=== PATIENT | female | born 2005 | race Caucasian/White ===

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

== ENCOUNTER 2023-08-20 11:53 | Emergency (ER) | payer MEDICAID, SELFPAY ==
--- NOTE | ~2023-08-20 | XR_ITS ---
EXAMINATION: XR chest 2V DATE: 08/20/2023 12:30 INDICATION: Chest pain TECHNIQUE: PA and lateral views of the chest were obtained. COMPARISON: None FINDINGS: The lungs are clear with no focal airspace opacities, pulmonary edema, pleural effusion or pneumothor ax. The cardiomediastinal silhouette is normal. Mild thoracic levocurvature. IMPRESSION: 1. No acute cardiopulmonary disease. Reviewed, dictated and finalized at location A. TERING FILTERING SUPERVISOR
--- NOTE | 2023-08-20 11:56 | ECG_ITS ---
Measurements Intervals [place] Rate: 115 P: 51 TN: 115 QRS: 50 QRSD: 85 T: 4 QT: 312 QTc: 432 Interpretive Statements SINUS TACHYCARDIA WITH SHORT TN INTERVAL NORMAL ELECTROCARDIOGRAM NO PREVIOUS ECG AVAILABLE FOR COMPARISON Electronically Signed On 08-20-2023 14:14:30 PAPER DELIVERER by Mike Hartman M.D.
[2023-08-20 12:06] VITALS: BP 140/86; PULSE 129; RESP 16; TEMP 36.7; O2SAT 99
[2023-08-20 12:30] LABS: Basophils Percent Auto 0.4 % (0.2-1.2); Eosinophils Absolute Auto 0.3 K/mm3 (0-0.3); Eosinophils Percent Auto 3.7 % (0-4.4); Hematocrit 42.4 % (37.0-47.0); Hemoglobin 13.8 g/dL (12.0-15.0); Immature Granulocyte Absolute 0.03 K/mm3 (0.00-0.031); Immature Granulocyte Percent A 0.4 % (0-0.5); Lymphocytes Percent Auto 31.6 % (18.3-44.2); Mean Corpuscular HGB Conc 32.5 g/dl (32-36); Mean Corpuscular Hemoglobin 29.8 pg (26-34); Mean Corpuscular Volume 91.6 fl (80-100); Monocytes Absolute Auto 0.6 K/mm3 (0.1-0.6); Monocytes Percent Auto 7.6 % (2.6-8.5); Neutrophils Absolute Auto 4.3 K/mm3 (1.3-6.7); Neutrophils Percent Auto 56.3 % (45.5-73.1); Platelet Count Result 317 k/mm3 (150-375); Red Blood Count 4.63 M/mm3 (4.2-5.4); Red Cell Distribution Width 12.3 % (11.5-14.5); White Blood Count 7.6 K/mm3 (4.5-10.0)
[2023-08-20 12:40] LABS: Alanine Aminotransferase 53 U/L (6-35); Albumin Level 4.9 g/dL (3.7-5.6); Alkaline Phosphatase 86 U/L (45-116); Anion Gap 11 mmol/L (8-16); Aspartate Amino Transferase 35 U/L (14-36); Bilirubin,Total 0.9 mg/dL (0.2-1.3); Blood Urea Nitrogen 6 mg/dL (8-21); Calcium 10.1 mg/dL (8.9-10.7); Carbon Dioxide 25 mmol/L (22-30); Chloride 104 mmol/L (98-107); Estimated Glomerular Filt Rate > 60; Glucose 109 mg/dL (65-110); Lipase 41 U/L (23-300); Potassium 3.9 mmol/L (3.4-5.0); Sodium 140 mmol/L (134-143)
[2023-08-20 12:41] LABS: Prothrombin Time 13.5 Seconds (11.1-14.7)
[2023-08-20 12:42] LABS: Partial Thromboplastin Time 27.5 SECONDS (22.3-36.8)
[2023-08-20 12:52] LABS: Troponin I < 0.012 ng/mL (0.000-0.034)
--- NOTE | 2023-08-20 15:20 | ED.GENADULT ---
HPI - General Adult General Chief complaint: Chest Pain Stated complaint: cp, dizzy Time Seen by Provider: 08/20/23 14:45 History of Present Illness HPI narrative: 17 years old white female came to the emergency room with her girlfriend complaining of intermittent lightheadedness, migraine headache, 4 days/weeks, retrosternal chest pain 8 hours ago.. Currently patient main complaint is lightheadedness and headache. History of anxiety, depression, insomnia and migraine headache. Patient denies any shortness of breath or back pain or abdominal pain. Related Data Home Medications Medication Instructions Recorded Confirmed Seroquel 04/23/21 hydroxyzine HCl 04/23/21 Allergies Allergy/AdvReac Type Severity Reaction Status Date / Time No Known Allergies Allergy Verified 08/20/23 14:39 Review of Systems Review of Systems: All systems reviewed & are unremarkable except as noted in HPI and below PMFSH Past Medical History Medical History Anxiety Depression Social History Social History Smoking status: Never smoker Alcohol intake: current Substance use type: marijuana Last use: 48 hours ago Exam Narrative: General appearance: Well-developed, well-nourished Skin: Normal color Head: Normocephalic, nontraumatic Eyes: Clear conjunctiva ENT: Oropharynx normal, ears normal, nose normal Neck: Supple, nontender Chest and respiratory: Airway patent, no respiratory distress, no accessory muscle use Heart: Regular rate/rhythm Abdomen: Soft, nontender, no organomegaly, quiet bowel sounds Vascular: Normal peripheral pulses, normal capillary refill. Musculoskeletal: Normal range of motion, nontender back Neurologic: Alert and oriented ?3, ELECTROTYPE FINISHER is normal as tested, no gross motor deficit Course Vital Signs Vital signs: Vital Signs Temperature 36.7 C 08/20/23 12:06 Pulse Rate 129 H 08/20/23 12:06 Respiratory Rate 16 08/20/23 12:06 Blood Pressure 140/86 08/20/23 12:06 Pulse Oximetry 99 08/20/23 12:06 Oxygen Delivery Room Air 08/20/23 12:06 Temperature 36.7 C 08/20/23 12:06 Pulse Rate 129 H 08/20/23 12:06 Respiratory Rate 16 08/20/23 12:06 Blood Pressure 140/86 08/20/23 12:06 Pulse Oximetry 99 08/20/23 12:06 Oxygen Delivery Room Air 08/20/23 12:06 Medical Decision Making MDM Narrative Medical decision making narrative: Patient presents with multiple symptoms including headache, chest pain, lightheadedness, insomnia, insomnia Differential diagnosis anxiety, depression, migraine headache Blood workup showed no acute abnormality, EKG and chest x-ray showed no acute abnormality. In the ED patient received 60 mg of Toradol IM, 1 mg of Ativan p.o. with remarkable improvement. the pt was discharged to home.the pt,s condition upon discharge was fair,education was provided to the pt in reference to the final impression,discharge study results,treatment,prognosis and need for follow up . Differential Diagnosis Differential Diagnosis: As above Vital Signs Vital Signs: Vital Signs Temperature 36.7 C 08/20/23 12:06 Pulse Rate 129 H 08/20/23 12:06 Respiratory Rate 16 08/20/23 12:06 Blood Pressure 140/86 08/20/23 12:06 Pulse Oximetry 99 08/20/23 12:06 Oxygen Delivery Room Air 08/20/23 12:06 Temperature 36.7 C 08/20/23 12:06 Pulse Rate 129 H 08/20/23 12:06 Respiratory Rate 16 08/20/23 12:06 Blood Pressure 140/86 08/20/23 12:06 Pulse Oximetry 99 08/20/23 12:06 Oxygen Delivery Room Air 08/20/23 12:06 Lab Data 08/20/23 12:22
[2023-08-20] MEDS: LORazepam (*CRX) 0.5 MG TABLET 1 MG PO (15:31)
[2023-08-20] MEDS: KETOROLAC (*BKC) 60 MG/2 ML VIAL IM (15:34)
[2023-08-20 17:00] VITALS: BP 135/90; PULSE 105; RESP 18; O2SAT 100
== END 2023-08-20 17:02 | disposition home or self-care (01) ==
PROVIDERS: Emergency Provider Emergency Medicine
DX: G43.909 Migraine, unspecified, not intractable, without status migrainosus (principal); R07.89 Other chest pain; F41.9 Anxiety disorder, unspecified; F32.A Depression, unspecified; R00.0 Tachycardia, unspecified
CPT/HCPCS: 36415; 71046; 80053; 83690; 84484; 85025; 85610; 85730; 93005; 96372; 99284; A9270; J1885

== ENCOUNTER 2023-09-12 19:30 | Emergency (ER) | payer MEDICAID, SELFPAY ==
--- NOTE | ~2023-09-12 | CT_ITS ---
EXAMINATION: CT brain wo con DATE: 09/12/2023 22:22 INDICATION: near syncope, lightheaded . TECHNIQUE: Computed tomography (CT) of the head was performed without intravenous contrast. The mA wa s adjusted according to patient size. Iterative reconstruction technique was employed. The dose-lengt h product was 605.33 mGy-cm. COMPARISON: None. FINDINGS: No acute intracranial hemorrhage or extra-axial fluid collection. No hydrocephalus, mass, or herniation. No acute ischemic infarct. Unremarkable dural venous sinus attenuation. No acute osseous abnormality. The aerated spaces are clear. IMPRESSION: No acute intracranial process. Reviewed, dictated and finalized at location K.
[2023-09-12 19:33] VITALS: BP 137/103; PULSE 130; RESP 24; TEMP 37.2; O2SAT 98
--- NOTE | 2023-09-12 20:56 | ECG_ITS ---
Measurements Intervals [place] Rate: 101 P: 55 LA: 120 QRS: 41 QRSD: 88 T: 4 QT: 333 QTc: 433 Interpretive Statements SINUS TACHYCARDIA MINIMAL Q WAVES- INFERIOR LEADS BORDERLINE T WAVE ABNORMALITY- INFERIOR LEADS BORDERLINE ECG COMPARED TO ECG 08/20/2023 12:01:57 NO SIGNIFICANT CHANGES Electronically Signed On 09-13-2023 6:29:48 CDT by Leo Chavez D.O.
--- NOTE | 2023-09-12 20:56 | ED.GENADULT ---
[facility] - General Adult General Chief complaint: Anxiety Stated complaint: dizzy, thinks panic attack Time Seen by Provider: 09/12/23 20:34 Source: patient Mode of arrival: ambulatory Limitations: no limitations History of Present Illness [facility] narrative: This is this is a 17-year-old female who presents to the ED with chief complaint of anxiety off and on for the past month and worse today. Reports today she had shortness of breath, lightheadedness. She has not take anything for anxiety. She has had a couple of panic attacks in the past and is thinking this might be the same. No specific stressors today. Endorses intermittent chest pain. No association with exertion. Denies fevers, chills, cough, abdominal pain, nausea, vomiting. Related Data Home Medications Medication Instructions Recorded Confirmed Seroquel 04/23/21 hydroxyzine HCl 04/23/21 Allergies Allergy/AdvReac Type Severity Reaction Status Date / Time No Known Allergies Allergy Verified 08/20/23 14:39 Review of Systems Review of Systems: All systems as dictated in [facility] Past Medical History Medical History Anxiety Depression Social History Social History Smoking status: Never smoker Alcohol intake: current Substance use type: does not use Last use: 48 hours ago Exam Narrative: GENERAL: Tearful on exam HEAD: Normocephalic, atraumatic. EYES: PERRLA and EOMI. ENT: Nares clear, no rhinorrhea or epistaxis. Mucous membranes moist. Oropharynx without tonsillar hypertrophy exudate or other lesions. NECK: Supple. No adenopathy or masses. CHEST: No respiratory distress. Clear to auscultation. No wheezes rales or rhonchi HEART: Regular rate and rhythm. No murmur heard. Normal peripheral pulses. ABDOMEN: Soft, nontender, nondistended, normal active bowel sounds. MSK: Normal range of motion. No edema. SKIN: Warm, dry, no rash. NEURO: Alert and oriented x3. No focal deficits. PSYCH: Anxious mood. Tearful affect. Conversational and pleasant. Course Vital Signs Vital signs: Vital Signs Temperature 99 F 09/12/23 19:33 Pulse Rate 130 H 09/12/23 19:33 Respiratory Rate 24 H 09/12/23 19:33 Blood Pressure 137/103 H 09/12/23 19:33 Pulse Oximetry 98 09/12/23 19:33 Oxygen Delivery Room Air 09/12/23 19:33 Temperature 97.9 F 09/12/23 22:54 Pulse Rate 98 09/12/23 22:54 Respiratory Rate 18 09/12/23 22:54 Blood Pressure 122/87 09/12/23 22:54 Pulse Oximetry 100 09/12/23 22:54 Oxygen Delivery Room Air 09/12/23 19:33 Medical Decision Making MDM Narrative Medical decision making narrative: This is a 17-year-old female who presents to the ED for chief complaint possible panic attack. She has history anxiety and has been feeling quite anxious today. Vitals initially showed tachycardia tachypnea very anxious on exam. EKG shows sinus rhythm. CT brain normal. She is given Ativan here with great relief. Shared decision making to discharge home. She has follow-up with Psychiatry in 10 days. Stable for discharge with normal vitals. Currently asymptomatic. Return precautions given and supportive measures discussed. Vital Signs Vital Signs: Vital Signs Temperature 99 F 09/12/23 19:33 Pulse Rate 130 H 09/12/23 19:33 Respiratory Rate 24 H 09/12/23 19:33 Blood Pressure 137/103 H 09/12/23 19:33 Pulse Oximetry 98 09/12/23 19:33 Oxygen Delivery Room Air 09/12/23 19:33 Temperature 97.9 F 09/12/23 22:54 Pulse Rate 98 09/12/23 22:54 Respiratory Rate 18 09/12/23 22:54 Blood Pressure 122/87 09/12/23 22:54 Pulse Oximetry 100 09/12/23 22:54 Oxygen Delivery Room Air 09/12/23 19:33 Discharge Plan Discharge Clinical Impression: Acute anxiety Patient Disposition: Home, Self-Care Condition: Stable Instructions: Antibiotic Form Additio
[2023-09-12 21:15] VITALS: BP 115/94; PULSE 104; RESP 19; O2SAT 99
--- NOTE | 2023-09-12 21:15 | PC.NURSE ---
pt is very nervous about IM injection and declined shot. pt requested PO medication option if available. provider notified and adding new orders now.
[2023-09-12] MEDS: LORazepam (*CRX) 0.5 MG TABLET PO ×2 (21:18→22:50)
[2023-09-12 22:00] VITALS: BP 122/87; PULSE 104; RESP 15; O2SAT 99
[2023-09-12 22:54] VITALS: BP 122/87; PULSE 98; RESP 18; TEMP 36.6; O2SAT 100
== END 2023-09-12 22:55 | disposition home or self-care (01) ==
PROVIDERS: Emergency Provider Physician Assistant; PCP Emergency Medicine
DX: F41.9 Anxiety disorder, unspecified (principal); F32.A Depression, unspecified; R00.0 Tachycardia, unspecified; R94.31 Abnormal electrocardiogram [ECG] [EKG]
CPT/HCPCS: 70450; 93005; 99284; A9270; J2060